=== PATIENT | female | born 1975 | race Caucasian/White ===

== ENCOUNTER → 2019-04-05 | Outpatient (CLI) | payer OTHER ==
--- NOTE | 2019-04-05 17:02 | XR ---
EXAMINATION TYPE: XR humerus RT DATE OF EXAM: 04/05/2019 COMPARISON: NONE HISTORY: Pain TECHNIQUE: 2 views FINDINGS: I see no fracture nor dislocation. Shoulder joint and elbow joint appear intact. IMPRESSION: Negative right humerus exam.
--- NOTE | 2019-04-05 17:02 | XR ---
EXAMINATION TYPE: XR forearm RT DATE OF EXAM: 04/05/2019 COMPARISON: NONE HISTORY: Pain TECHNIQUE: 2 views FINDINGS: Wrist joint and elbow joint appear intact. There are no pathologic calcifications. Joint sp aces are normal. Soft tissues appear normal. IMPRESSION: Negative right forearm exam.
--- NOTE | 2019-04-05 17:03 | XR ---
EXAMINATION TYPE: XR wrist complete RT DATE OF EXAM: 04/05/2019 COMPARISON: NONE HISTORY: Pain TECHNIQUE: 4 views FINDINGS: Carpal bones are intact. I see no fracture nor dislocation. Joint spaces are normal. Metaca rpals are intact. IMPRESSION: Normal right wrist exam.
== END ==
LOC: RADXRMAIN 16:28
PROVIDERS: ATTEND Emergency Medicine
DX: M25.511 Pain in right shoulder (principal); S50.11XA Contusion of right forearm, initial encounter; M25.531 Pain in right wrist

== ENCOUNTER → 2019-04-08 | Outpatient (CLI) | payer OTHER ==
--- NOTE | 2019-04-08 17:27 | XR ---
Right hand 3 views. History pain. Injury. Comparison none. FINDINGS: Metacarpals are intact. I see no fracture nor dislocation. Joint spaces are normal. There are no eros ions. IMPRESSION: Negative right hand exam.
== END | disposition home or self-care (01) ==
LOC: RADXRMAIN 16:58
PROVIDERS: ATTEND Emergency Medicine
DX: S60.221D Contusion of right hand, subsequent encounter (principal)

== ENCOUNTER → 2022-11-19 | Outpatient (CLI) | payer BC ==
--- NOTE | 2022-11-20 08:43 | MM ---
Reason for Exam: Screening (asymptomatic). Baseline mammogram. Patient History: Menarche at age 13. First Full-Term at age 25. Paternal grandmother had breast cancer. Risk Values: Angelica 5 year model risk: 0.8%. NCI Lifetime model risk: 8.5%. Prior Study Comparison: Patient's first Mammogram. No prior studies available for comparison. Tissue Density: The breast tissue is heterogeneously dense. This may lower the sensitivity of mammography. Findings: Analyzed By CAD. There is no suspicious group of microcalcifications or new suspicious mass in either breast. Overall Assessment: Negative, BI-RAD 1 Management: Screening Mammogram of both breasts in [address] [facility] will attempt to contact patient to return for supplemental views and ultrasound if indicated. Patient should continue monthly self-breast exams. A clinical breast exam by your physician is recommended on an annual basis. This exam should not preclude additional follow-up of suspicious palpable abnormalities. Note on Angelica scores and lifetime risk: 1. A Angelica score greater than 3% is considered moderate risk. If this is the case, consider specialist referral to assess eligibility for a risk reducing agent. 2. If overall lifetime risk for the development of breast cancer is 20% or higher, the patient may qualify for future screening with alternating mammogram and breast MRI. Electronically signed and approved by: Landon Cobian DO
== END | disposition home or self-care (01) ==
LOC: RADMAMWWP 08:29
PROVIDERS: ATTEND Obstetrics & Gynecology
DX: Z12.31 Encounter for screening mammogram for malignant neoplasm of breast (principal); Z80.3 Family history of malignant neoplasm of breast
CPT/HCPCS: 77067